=== PATIENT | male | born 1960 | race Caucasian/White ===

== ENCOUNTER 2020-10-17 17:39 | Emergency (ER) | payer OTHER ==
[~2020-10-17] VITALS: Ht 177.8 cm; Wt 86.4 kg
--- NOTE | 2020-10-17 17:45 | PHYS DOC ---
General Adult HPI: HPI: "... I got this rash . it started 4 days ago.. I went UC yesterday.. they started me on Keflex and Prednisone.. but is no better.. now it ulcerating..." Patient is a 60 year old male who presents with above hx and complaints of rash on legs. Tetanus is less than 5 yrs. Pt. follows with Dr. Melissa Guzman. Patient denies any history immunosuppression. No recent travel. No severe ill contacts. May have gotten in contact with poison familia or poison oak. Patient has ulcerating lesions on his lower shins and some rash along right flank. Patient has been using [id number] meds and was started on prednisone and Keflex yesterday at urgent care. Patient worried that the rash has not improved and there is increased swelling and drainage today. Review of Systems: Review of Systems: Constitutional: Denies fever or chills Eyes: Denies change in visual acuity HENT: Denies nasal congestion or sore throat Respiratory: Denies cough or shortness of breath Cardiovascular: Denies chest pain or edema GI: Denies abdominal pain, nausea, vomiting, bloody stools or diarrhea : Denies dysuria Musculoskeletal: Denies back pain or joint pain Integument: Complains of rash and skin breakdown Neurologic: Denies headache, focal weakness or sensory changes Endocrine: Denies polyuria or polydipsia Lymphatic: Denies swollen glands Psychiatric: Denies depression or anxiety Family History: Family History: Noncontributory to presentation Current Medications: Current Meds: See nursing for home meds Allergies: Allergies: No known drug allergies Physical Exam: PE: Constitutional: Moderate acute distress, non-toxic appearance. [] HENT: Normocephalic, atraumatic, bilateral external ears normal, oropharynx moist, no oral exudates, nose normal. [] Eyes: PERRLA, EOMI, conjunctiva normal, no discharge. [] Neck: Normal range of motion, no tenderness, supple, no stridor. [] Cardiovascular:Heart rate regular rhythm, no murmur [] Lungs & Thorax: Bilateral breath sounds to apex on auscultation [] Abdomen: Bowel sounds normal, soft, no tenderness, no masses, no pulsatile masses. [] Skin: Warm, dry, no erythema, blistering ulcerated lash on lower shins and small area of rash on right flank Back: No tenderness, no CVA tenderness. [] Extremities: No tenderness, no cyanosis, no clubbing, ROM intact, no edema. [] Neurologic: Alert and oriented X 3, normal motor function, normal sensory function, no focal deficits noted. [] Psychologic: Affect anxious judgement normal, mood normal. [] EKG: EKG: [] Radiology/Procedures: Radiology/Procedures: [] Heart Score: C/O Chest Pain: N/A Risk Factors: Risk Factors: DM, Current or recent (<one month) smoker, HTN, HLP, family history of CAD, obesity. Risk Scores: Score 0 - 3: 2.5% MACE over next 6 weeks - Discharge Home Score 4 - 6: 20.3% MACE over next 6 weeks - Admit for Clinical Observation Score 7 - 10: 72.7% MACE over next 6 weeks - Early Invasive Strategies Course & Med Decision Making: Course & Med Decision Making Pertinent Labs and Imaging studies reviewed. (See chart for details) Wash area twice a day. Massage area with polysporin 4 x day. Continue the Prednisone if suspect poison familia or oak ect. Will need to take this med longer. Will order a taper of 40 mg x 3 days 30 mg x 3 days 20 mg x 3 days 10 mg x 3 days 5 mg x 4 days. Will add Bactrim DS twice a day to antibiotic. Continue Keflex for now. Follow up with primary. Reexam if no improvement. Impression: 1. Contact dermatitis-suspect poison familia/poison oak 2. Cellulitis [] Dragon Disclaimer: Dragon Disclaimer: This electronic medical record was generated, in whole or in part, using a voice recognition dictation system. Departure Departure: Referrals: MELISSA GUZMAN MD (PCP) Scripts Prednisone (PREDNISONE) 50 Mg Tablet 10 MG PO taper for poison familia, #50 TAB Prov: MARYANA LUGO MD 10/17/20 Sulfamethoxazole/Trimethoprim (BACTRIM DS TABLET) 1 Each Tablet 1 TAB PO BID for cellulitis for 10 Days, #20 TAB 0 Refills Prov: MARYANA LUGO MD 10/17/20 Josephine Disclaimer This chart was dictated in whole or in part using Voice Recognition software in a busy, high-work load, and often noisy Emergency Department environment. It may contain unintended and wholly unrecognized errors or omissions. MARYANA LUGO MD Oct 17, 2020 17:45
[2020-10-17] MEDS ORDERED: SULF1TAB24 PO (18:03)
[2020-10-17] MEDS ORDERED: PRED50TA PO (18:03)
[2020-10-17 18:47] VITALS: BP 129/73
[2020-10-17] MEDS: SMZ/TMP 800/160MG TABLET. PO ONE (18:57)
== END 2020-10-17 19:00 | disposition home or self-care (01) ==
LOC: ER 17:39
DX: L25.9 Unspecified contact dermatitis, unspecified cause (principal); L03.311 Cellulitis of abdominal wall
CPT/HCPCS: 99283